=== PATIENT | male | born 1995 | race Hispanic/Latino ===

== ENCOUNTER 2018-02-28 21:07 | Emergency (ER) | payer OTHER ==
[2018-02-28] MEDS: PERCOCET 5MG/325MG TAB PO (21:53)
[2018-02-28] MEDS: OXYCODONE/APAP 5MG/325MG(BULK FOR ED) 1 TABLET PO (23:16)
== END 2018-02-28 23:21 | disposition home or self-care (01) ==
LOC: M ED 21:07
DX: S52.532A Colles' fracture of left radius, initial encounter for closed fracture (principal); W01.0XXA Fall on same level from slipping, tripping and stumbling without subsequent striking against object, initial encounter; Y92.830 Public park as the place of occurrence of the external cause; Y93.66 Activity, soccer; Y99.9 Unspecified external cause status
CPT/HCPCS: 73110